=== PATIENT | female | born 1995 | race Caucasian/White ===

== ENCOUNTER 2017-03-28 17:36 | Outpatient (CLI) | payer MEDICAID ==
[2017-03-28 18:05] VITALS: BP 98/57
[2017-03-28] MEDS ORDERED: LACTATED RINGERS 500 ML IV ONE (18:05)
[2017-03-28 18:44] LABS: Bilirubin,Urine NEG (Negative); Blood,Urine NEG (Negative); Ketones,Urine NEG (Negative); Leukocyte Esterase,Urine MOD (Negative); Nitrite,Urine NEG (Negative); Protein,Urine <15 mg/dL mg/dL (Negative); Urobilinogen,Urine < 2.0 mg/dL (<2.0)
== END 2017-03-28 20:18 | disposition home or self-care (01) ==
LOC: TRG 17:36
PROVIDERS: ATTEND Obstetrics & Gynecology
DX: O47.03 False labor before 37 completed weeks of gestation, third trimester (principal); Z3A.35 35 weeks gestation of pregnancy
CPT/HCPCS: 81001; 96360; J7120

== ENCOUNTER 2017-04-16 19:42 | Outpatient (CLI) | payer MEDICAID ==
[2017-04-16 19:56] VITALS: BP 109/69
[2017-04-16] MEDS ORDERED: LACTATED RINGERS 1,000 ML IV ONE (20:03)
[2017-04-16 20:21] LABS: Bilirubin,Urine NEG (Negative); Blood,Urine NEG (Negative); Ketones,Urine NEG (Negative); Leukocyte Esterase,Urine TR (Negative); Mucus,Urine 3+ /HPF; Nitrite,Urine NEG (Negative); Protein,Urine <15 mg/dL mg/dL (Negative); Urobilinogen,Urine < 2.0 mg/dL (<2.0); WBC,Urine < 1.0 /HPF (0.0-6.0)
== END 2017-04-16 20:40 | disposition home or self-care (01) ==
LOC: TRG 19:42
PROVIDERS: ATTEND Obstetrics & Gynecology
DX: O47.1 False labor at or after 37 completed weeks of gestation (principal); Z3A.38 38 weeks gestation of pregnancy
CPT/HCPCS: 59025; 81001

== ENCOUNTER 2017-04-18 13:11 | Outpatient (CLI) | payer MEDICAID ==
[2017-04-18 13:42] VITALS: BP 109/68
== END 2017-04-18 14:23 | disposition home or self-care (01) ==
LOC: TRG 13:11
PROVIDERS: ATTEND Obstetrics & Gynecology
DX: O47.1 False labor at or after 37 completed weeks of gestation (principal); Z3A.38 38 weeks gestation of pregnancy
CPT/HCPCS: 59025

== ENCOUNTER 2018-05-04 19:12 | Outpatient (CLI) | payer OTHER ==
[2018-05-04 20:11] VITALS: BP 95/52
[2018-05-04] MEDS ORDERED: LACTATED RINGERS 1,000 ML IV ONE (20:51)
[2018-05-04] MEDS ORDERED: CELESTONE SOLUSPAN IM SCH (21:00)
[2018-05-04 21:21] LABS: Bilirubin,Urine NEG (Negative); Blood,Urine NEG (Negative); Calcium Oxalate Crystals,Urine FEW; Color,Urine Yellow (Yellow); Mucus,Urine 3+ /HPF
== END 2018-05-04 21:49 | disposition home or self-care (01) ==
LOC: TRG 19:12
PROVIDERS: ATTEND Obstetrics & Gynecology
DX: O47.03 False labor before 37 completed weeks of gestation, third trimester (principal); Z3A.33 33 weeks gestation of pregnancy
CPT/HCPCS: 36415; 59025; 81001; 82731; 96372; J0702

== ENCOUNTER 2018-06-14 04:05 | Outpatient (CLI) | payer OTHER ==
[2018-06-14 04:13] VITALS: BP 117/71
--- NOTE | 2018-06-14 05:18 | Ultrasound Report ---
FINAL REPORT EXAM: US OB LIMITED HISTORY: Absent movement COMPARISONS: None. FINDINGS: Transabdominal limited grayscale, color Doppler and M-mode 3rd trimester ultrasound A single living intrauterine is documented with recorded cardiac activity of 130 beats per minute. Amniotic fluid volume is subjectively normal and amniotic fluid index measures approximately 12 cm. Presentation appear cephalic. The placenta and cervix are incompletely visualized. IMPRESSION: Single living intrauterine as above.
--- NOTE | 2018-06-14 05:21 | Ultrasound Report ---
FINAL REPORT EXAM: US OB BPP WO NON-STRESS HISTORY: Absent movement COMPARISONS: None. FINDINGS: Transabdominal limited grayscale, color Doppler and M-mode 3rd trimester ultrasound with biophysical profile A single living intrauterine is documented with recorded cardiac activity of 130 beats per minute. Amniotic fluid volume is subjectively normal and amniotic fluid index measures approximately 12 cm. Biophysical profile score is 8/8. Presentation appears cephalic. The placenta and cervix are incompletely visualized. IMPRESSION: Single living intrauterine with biophysical profile score of 8/8.
--- NOTE | 2018-06-14 17:15 | Event Note ---
Date: 06/14/18 Triage note for 06/14/2018: 23 year old presented to L&D triage complaining of feeling decreased movement since 11:00 PM last night. Patient denied falls or abdominal trauma. Patient denies leaking of fluid or vaginal bleeding or regular contractions. NST was reactive, BPP was 8/8, CHRIST 12 cm. Fetus moving actively. Patient reported during her visit that she felt good movement here in triage. Patient was discharged home and advised to perform daily movement counting. Signs of labor were discussed with patient.
== END 2018-06-14 05:24 | disposition home or self-care (01) ==
LOC: TRG 04:05
PROVIDERS: ATTEND Obstetrics & Gynecology
DX: O36.8130 Decreased fetal movements, third trimester, not applicable or unspecified (principal); Z3A.39 39 weeks gestation of pregnancy
CPT/HCPCS: 59025; 76815; 76819

== ENCOUNTER 2018-06-14 22:22 | Outpatient (CLI) | payer OTHER ==
[2018-06-14 23:01] VITALS: BP 99/58
--- NOTE | 2018-06-15 00:35 | Event Note ---
Date: 06/14/18 Triage note for 06/14/18: Patient is a 23 year old who presented to L&D triage at 39 weeks gestation with complaint of vaginal mucous discharge tinged with blood. Patient has had her cervix examined at her last triage visit and states she noticed a small amount of spotting when wiping when she went home. Later in the day she noticed mucous with a small streak of pink when she wiped. Patient denies falls or abdominal trauma. She denies regular contractions or abdominal pain. She denies leaking of fluid. Patient reports active movement. Patient is well appearing. Abdomen is soft, nontender. Irregular contractions noted, mild to palpation. No vaginal bleeding seen; no leaking of fluid seen. SVE 4/60/-2/ cephalic. No blood noted on exam glove after removal from vagina. Patient was discharged home since she was not in active labor. Labor precautions, warning signs discussed with patient. Advised pt. to perform daily movement counting. Advised pt. to follow up with [facility] tomorrow at her scheduled appointment and to return to hospital promptly if labor or any problems. Pt. voiced understanding of instructions.
== END 2018-06-14 23:30 | disposition home or self-care (01) ==
LOC: TRG 22:22
PROVIDERS: ATTEND Obstetrics & Gynecology
DX: O47.1 False labor at or after 37 completed weeks of gestation (principal); Z3A.39 39 weeks gestation of pregnancy
CPT/HCPCS: 59025

== ENCOUNTER 2018-06-16 23:08 | Outpatient (CLI) | payer OTHER ==
[2018-06-16 23:25] VITALS: BP 103/59
== END 2018-06-17 00:24 | disposition home or self-care (01) ==
LOC: TRG 23:08
PROVIDERS: ATTEND Obstetrics & Gynecology
DX: Z34.93 Encounter for supervision of normal pregnancy, unspecified, third trimester (principal); Z3A.39 39 weeks gestation of pregnancy
CPT/HCPCS: 59025